=== PATIENT | female | born 1970 | race Caucasian/White ===

== ENCOUNTER → 2017-02-26 | Outpatient (CLI) | payer BC | LOC: FIMAGING 13:59 | PROVIDERS: ATTEND Obstetrics & Gynecology | DX: Z12.31 Encounter for screening mammogram for malignant neoplasm of breast (principal); N63.11 Unspecified lump in the right breast, upper outer quadrant | CPT/HCPCS: G0204 ==

== ENCOUNTER → 2017-03-08 | Outpatient (CLI) | payer BC ==
[~2017-03-08] MED LIST: BUPIVACAINE 0.5% 10 ML SDV ONE; LIDOCAINE 1% 300 MG/30 ML SDV ONE; THROMBIN (BOVINE) 5,000 UNIT VIAL TP ONE
== END ==
LOC: FIMAGING 08:03
PROVIDERS: ATTEND Obstetrics & Gynecology
PROC: 0HBT3ZX Excision of Right Breast, Percutaneous Approach, Diagnostic (ICD-10-PCS; principal; 2017-03-08)
DX: C50.411 Malignant neoplasm of upper-outer quadrant of right female breast (principal)
CPT/HCPCS: G0206

== ENCOUNTER → 2017-03-22 | Outpatient (CLI) | payer BC ==
[~2017-03-22] MED LIST changes: -BUPIVACAINE 0.5% 10 ML SDV ONE; +GADOBUTROL 10 ML VIAL IVP ONE; -LIDOCAINE 1% 300 MG/30 ML SDV ONE; -THROMBIN (BOVINE) 5,000 UNIT VIAL TP ONE
== END ==
LOC: FIMAGING 11:36
PROVIDERS: ATTEND Surgery
DX: C50.111 Malignant neoplasm of central portion of right female breast (principal)
CPT/HCPCS: 0159T; A9585; C8908

== ENCOUNTER → 2017-03-30 | Outpatient (CLI) | payer BC | LOC: FIMAGING 07:38 | PROVIDERS: ATTEND Surgery | DX: C50.111 Malignant neoplasm of central portion of right female breast (principal) | CPT/HCPCS: A9520 ==

== ENCOUNTER 2017-05-01 19:18 | Emergency (ER) | payer BC ==
[2017-05-01 19:32] VITALS: TEMP 97.5
[2017-05-01] MEDS ORDERED: ONDANSETRON 4 MG/2 ML VIAL IVP ONE (19:36)
[2017-05-01] MEDS ORDERED: METOCLOPRAMIDE 10 MG/2 ML VIAL IVP ONE (19:48)
[2017-05-01] MEDS ORDERED: NS 1,000 ML IV ONE (19:48)
[2017-05-01 19:52] LABS: PLATELET COUNT 182 10^3/uL (150-400)
[2017-05-01 20:02] VITALS: BP 120/82; PULSE 69; RESP 15; O2SAT 96
--- NOTE | 2017-05-01 20:15 | EDPHY ---
H & P Stated Complaint: pt had headache, took tramadol, developed dizziness, n/v Time Seen by Provider: 05/01/17 19:34 HPI/ROS: CHIEF COMPLAINT: Headache and vomiting History by patient HISTORY OF PRESENT ILLNESS: 46-year-old woman with history of breast cancer for which she had surgery 1 month ago and her 1st round of chemotherapy 4 days ago presents complaining of severe headache that she woke up with yesterday. She took ibuprofen with some relief. She had some nausea at that time. Today she woke up in the headache was more severe, she did describes it as splitting and worse in any other migraine she has ever had. She took some ibuprofen again with some relief. She tried taking a tramadol after which she began feeling dizzy and vomiting in addition to the headache. She complains of some associated photophobia and neck stiffness but no fever. She describes the dizziness as feeling as if the room is spinning. She denies any focal numbness or weakness in her arms or legs. She feels like there are spots in her vision. She denies double vision. She denies difficulty speaking. She has a history of migraines but this is different and much worse. She is not on any blood thinners. She had some Aloxi for nausea at the time of her chemotherapy 4 days ago and when her spoke with the on-call oncologist they thought that this might be a cause of her headache. She has taken some promethazine at home with minimal relief. REVIEW OF SYSTEMS: As in HPI, and all other systems reviewed and are negative Source: Patient - Personal History Current Tetanus Diphtheria and Acellular Pertussis (TDAP): Yes Tetanus Vaccine Date: 2009 - Medical/Surgical History Hx Asthma: Yes Hx Chronic Respiratory Disease: Yes Hx Diabetes: No Hx Cardiac Disease: No Hx Renal Disease: No Hx Cirrhosis: No Hx Alcoholism: No Hx HIV/AIDS: No Hx Splenectomy or Spleen Trauma: No Other PMH: Systemic sclerosis, cardiac cath to r/o pulm HTN, asthma - Social History Smoking Status: Never smoked - Physical Exam Exam: General Appearance: Alert, uncomfortable appearing. Head: normocephalic, atraumatic Eyes: Pupils equal and round, reactive to light, no pallor or injection. Extraocular movements intact Mouth: Mucous membranes moist. Neck: Supple, no meningismus Respiratory: Normal, effort, lungs are clear to auscultation. No wheezes, rales or rhonchi. Cardiovascular: Regular rate and rhythm. S1, S2, no murmurs, gallops or rubs appreciated Gastrointestinal: Abdomen is soft and nontender, no masses, bowel sounds normal. Back: No CVA tenderness, no bony tenderness Neurological: Awake, alert and oriented x 3, cranial nerves 2-12 intact, no pronator drift, strength is 5/5 and equal bilaterally in the lower extremities Skin: Warm and dry, no rashes. Musculoskeletal: No deformities or tenderness. Extremities: full range of motion, no edema, DP2+ bilat Psychiatric: Patient has normal affect, there is no agitation. Constitutional: Initial Vital Signs Temperature (C) 36.4 C 05/01/17 19:28 Heart Rate 60 05/01/17 19:28 Respiratory Rate 14 05/01/17 19:28 Blood Pressure 137/87 H 05/01/17 19:28 O2 Sat (%) 100 05/01/17 19:28 O2 Delivery Mode Room Air Allergies/Adverse Reactions: erythromycin base [Erythromycin Base] Allergy (Intermediate, Verified 02/19/09 14:10) Home Medications: Medication Instructions Recorded RX: Diltiazem Cd [Cardizem ER 120 240 mg PO DAILY 04/30/11 MG (*)] RX: Aspirin [Aspirin 81mg (*)] 81 mg PO HS 11/09/14 RX: Bethanechol [Urecholine (*)] 25 mg PO ACHS 11/09/14 RX: Desipramine HCl [Norpramin 25 25 mg PO HS 11/09/14 mg] RX: Fluticasone Hfa 220 Mcg 2 puffs IH 11/09/14 [Flovent 220 MCG Hfa MDI (*)] RX: Herbals/Supplements -Info Only 1 ea PO DAILY 11/09/14 RX: Montelukast Sodium [Singulair 10 mg PO HS 11/09/14 10 mg (*)] RX: Omeprazole [Prilosec] 40 mg PO DAILY 11/09/14 RX: Rifaximin [Xifaxan] 550 mg PO BID PRN 11/09/14 RX: Docusate Sodium [Colace 100 MG 100 mg PO BID #20 cap 11/10/14 (*)] RX: Hydrocodone/APAP 5/325 [[place] 1 tab PO Q4 PRN #20 tab 11/10/14 5/325 (*)] RX: Ibuprofen [Motrin (*)] 600 mg PO QID #20 tab 11/10/14 Medical Decision Making - Diagnostics Imaging Results: Imaging Impressions Head CT 05/01/17 19:48 Impression: Normal. Results called and discussed with Wendy Kruger MD at 05/01/2017 20:36. Imaging: Discussed imaging studies w/ life skills worker Radiologist ED Course/Re-evaluation: 46-year-old woman with history of migraine headaches and breast cancer on 1st round of chemotherapy presents with severe headache, photophobia and now nausea and vomiting after taking tramadol. Patient has a normal neurologic exam. She is afebrile. Head CT was read as normal by the radiologist. Patient was given dose of IV Zofran with minimal relief. She has a given a L of IV saline and the Reglan 10 mg plus Benadryl 25 mg IV after which she was feeling markedly better. I discussed return precautions with the family. Patient has promethazine that she may take at home for ongoing nausea and vomiting. - Data Points Laboratory Results: Laboratory Results 05/01/17 19:30 05/01/17 19:30 05/01/17 05/01/17 19:30 19:30 WBC 3.88 10^3/uL 10^3/uL (3.80-9.50) RBC 5.00 10^6/uL 10^6/uL (4.18-5.33) Hgb 15.0 g/dL g/dL (12.6-16.3) Hct 43.4 % % (38.0-47.0) MCV 86.8 fL fL (81.5-99.8) MCH 30.0 pg pg (27.9-34.1) MCHC 34.6 g/dL g/dL (32.4-36.7) RDW 12.1 % % (11.5-15.2) Plt Count 182 10^3/uL 10^3/uL (150-400) MPV 9.7 fL fL (8.7-11.7) Neut % (Auto) Not Reported Lymph % (Auto) Not Reported Ross % (Auto) Not Reported Eos % (Auto) Not Reported Baso % (Auto) Not Reported Nucleat RBC Rel Count 0.0 % % (0.0-0.2) Absolute Neuts (auto) Not Reported Absolute Lymphs (auto) Not Reported Absolute Monos (auto) Not Reported Absolute Eos (auto) Not Reported Absolute Basos (auto) Not Reported Absolute Nucleated RBC 0.00 10^3/uL 10^3/uL (0-0.01) Immature Gran % Not Reported Seg Neutrophils % 50 % % Band Neutrophils % 11 % % Lymphocytes % 28 % % Monocytes % 3 % % Eosinophils % 6 % % Metamyelocytes % 2 % % Immature Gran # Not Reported Absolute Seg Neuts 1.9 K/MM3 K/MM3 (1.8-7) Absolute Band Neuts 0.4 K/MM3 K/MM3 (0-0.7) Absolute Lymphocytes 1.1 K/mm3 K/mm3 (1.0-4.8) Absolute Monocytes 0.1 K/mm3 K/mm3 (0-0.8) Absolute Eosinophils 0.2 K/mm3 K/mm3 (0-0.5) Absolute Metamyelocyte 0.1 K/mm3 H K/mm3 (0-0) RBC/WBC/PLT Morphology NORMAL (NORMAL) Platelet Estimate ADEQUATE (ADEQ) Sodium 139 mEq/L mEq/L (134-144) Potassium 4.3 mEq/L mEq/L (3.5-5.2) Chloride 102 mEq/L mEq/L (97-110) Carbon Dioxide 21 mEq/l L mEq/l (22-31) Anion Gap 16 mEq/L mEq/L (8-16) BUN 14 mg/dL mg/dL (7-23) Creatinine 0.8 mg/dL mg/dL (0.6-1.0) Estimated GFR > 60 Glucose 112 mg/dL H mg/dL (70-100) Calcium 9.4 mg/dL mg/dL (8.5-10.4) Medications Given: Discontinued Medications Diphenhydramine HCl (Benadryl Injection) 25 mg IVP EDNOW ONE Stop: 05/01/17 19:49 Last Admin: 05/01/17 19:53 Dose: 25 mg Sodium Chloride (Ns) 1,000 mls @ 0 mls/hr IV ONCE ONE; Wide Open PRN Reason: Protocol Stop: 05/01/17 19:49 Last Admin: 05/01/17 19:54 Dose: 1,000 mls Metoclopramide HCl (Reglan Injection) 10 mg IVP EDNOW ONE Stop: 05/01/17 19:49 Last Admin: 05/01/17 19:54 Dose: 10 mg Ondansetron HCl (Zofran) 4 mg IVP EDNOW ONE Stop: 05/01/17 19:37 Last Admin: 05/01/17 19:40 Dose: 4 mg Departure - Departure Disposition: Home, Routine, Self-Care Clinical Impression: Headache Qualifiers: Headache type: unspecified Headache chronicity pattern: acute headache Intractability: not intractable Qualified Code(s): R51 - Headache Nausea and vomiting Qualifiers: Vomiting type: unspecified Vomiting Intractability: non-intractable Qualified Code(s): R11.2 - Nausea with vomiting, unspecified Condition: Fair Instructions: Acute Headache (ED), Acute Nausea and Vomiting (ED) Additional Instructions: You were seen by Dr. Wendy Kruger today. You may take promethazine at home for ongoing headache and nausea and vomiting. You may take ibuprofen for your headache. Return for any worsening or new concerns including, but not limited to inability to keep down fluids or medications for severe pain, or fever. Referrals: Leela Cardozo MD [Primary Care Provider] - As per Instructions
== END 2017-05-01 20:53 | disposition home or self-care (01) ==
LOC: CED 19:18
DX: R51 Headache (principal); R11.2 Nausea with vomiting, unspecified; I10 Essential (primary) hypertension; J45.909 Unspecified asthma, uncomplicated; E86.9 Volume depletion, unspecified; Z79.82 Long term (current) use of aspirin; Z95.5 Presence of coronary angioplasty implant and graft; Z85.3 Personal history of malignant neoplasm of breast
CPT/HCPCS: 70450-PO; 80048-PO; 85025-PO; 96374; J1200; J2405; J2765

== ENCOUNTER → 2017-10-20 | Outpatient (CLI) | payer BC | LOC: FIMAGING 09:43 | PROVIDERS: ATTEND Internal Medicine Hematology & Oncology | DX: Z13.820 Encounter for screening for osteoporosis (principal); M81.0 Age-related osteoporosis without current pathological fracture; Z85.3 Personal history of malignant neoplasm of breast ==

== ENCOUNTER → 2018-04-28 | Outpatient (CLI) | payer BC | LOC: FIMAGING 12:38 | PROVIDERS: ATTEND Internal Medicine Hematology & Oncology | DX: Z12.31 Encounter for screening mammogram for malignant neoplasm of breast (principal); R92.8 Other abnormal and inconclusive findings on diagnostic imaging of breast; Z85.3 Personal history of malignant neoplasm of breast; Z17.0 Estrogen receptor positive status [ER+] | CPT/HCPCS: A9585; C8908 ==

== ENCOUNTER → 2018-05-16 | Outpatient (CLI) | payer BC ==
[~2018-05-16] MED LIST changes: -GADOBUTROL 10 ML VIAL IVP ONE; +PROTAMINE SULFATE 50 MG/5 ML VIAL IVP ONE
== END ==
LOC: FIMAGING 08:41
PROVIDERS: ATTEND Internal Medicine Hematology & Oncology
DX: C50.411 Malignant neoplasm of upper-outer quadrant of right female breast (principal); Z17.0 Estrogen receptor positive status [ER+]; R92.8 Other abnormal and inconclusive findings on diagnostic imaging of breast
CPT/HCPCS: 78306; A9503; J2720

== ENCOUNTER → 2018-08-05 | Outpatient (CLI) | payer BC ==
[~2018-08-05] MED LIST changes: +GADOBUTROL 10 ML VIAL IVP ONE; -PROTAMINE SULFATE 50 MG/5 ML VIAL IVP ONE
== END ==
LOC: FIMAGING 09:50
PROVIDERS: ATTEND Internal Medicine Hematology & Oncology
DX: C50.411 Malignant neoplasm of upper-outer quadrant of right female breast (principal); Z17.0 Estrogen receptor positive status [ER+]; Z85.3 Personal history of malignant neoplasm of breast
CPT/HCPCS: A9585; C8908

== ENCOUNTER → 2018-08-19 | Outpatient (CLI) | payer BC | LOC: CIMAGING 14:19 | PROVIDERS: ATTEND Family Medicine | DX: M54.41 Lumbago with sciatica, right side (principal); M53.3 Sacrococcygeal disorders, not elsewhere classified | CPT/HCPCS: 73521-PO ==